=== PATIENT | female | born 1945 | race Caucasian/White ===

== ENCOUNTER 2019-10-11 11:48 | Day surgery (SDC) | payer MEDICARE, OTHER ==
--- NOTE | 2019-10-05 10:50 | HP ---
AMENDED REPORT NOW INCLUDES DESIGNATED COSIGNER PREOPERATIVE HISTORY AND PHYSICAL: DATE OF SURGERY/ADMISSION: 10/11/19 DATE OF OFFICE VISIT/ENCOUNTER: 09/28/19 ATTENDING SURGEON: Noy Guajardo MD * (DICTATED BY SEAMUS TERESA) PROCEDURE: Right thumb incision and drainage, removal of foreign body. HISTORY OF PRESENT ILLNESS: This is a 74-year-old female who cut her right thumb about 6 weeks ago when she was reaching to flower buncher or picker a piece of glass. She thought she got the glass out of her thumb, but she has had a persistent nonhealing wound there that has been bleeding at times. It is very sore and bothersome. She would like to have the presumed piece of glass removed. She denies any other injuries. She denies any associated numbness or tingling. PAST MEDICAL HISTORY: 1. Raynaud's disease. 2. Arthritis. 3. History of vertigo. 4. Anxiety/depression. PAST SURGICAL HISTORY: 1. Left dermoid cyst oophorectomy/salpingectomy. 2. Lysis of adhesions. 3. Appendectomy. 4. Cholecystectomy. 5. Right ear surgery. CURRENT MEDICATIONS: 1. Alendronate sodium 70 mg weekly. 2. Centrum daily. 3. Escitalopram oxalate 10 mg daily. 4. Meclizine HCl 25 mg 1 t.i.d. p.r.n. 5. Metrogel 0.75 p.r.n. 6. Vagifem 10 mcg biweekly. ALLERGIES: NSAIDs cause gastric upset. FAMILY MEDICAL HISTORY: Heart disease, hypertension, cancer. SOCIAL HISTORY: The patient is a nurse. She denies tobacco use and recreational drug use. She drinks alcohol on regular occasion, usually a glass of wine daily. REVIEW OF SYSTEMS: Negative for general, cephalic, cardiovascular, respiratory , GI, , other musculoskeletal, integumentary, endocrine, neurologic and hematologic symptoms. Infectious Disease: Negative for MRSA, hepatitis C, HIV. PHYSICAL EXAMINATION GENERAL: Well-developed, well-nourished 74-year-old female in no acute distress. VITAL SIGNS: Height 5 feet 4 inches, weight 122 pounds, pulse rate 87, blood pressure 142/82. HEENT: Normocephalic, atraumatic. Pupils are equal, round, and reactive to light and accommodation. Extraocular movements are intact. NECK: Supple. No palpable lymph nodes. Throat is clear. PULMONARY: Lungs are clear to auscultation bilaterally. No wheezes, rales, or rhonchi. CARDIOVASCULAR: Regular rate and rhythm. S1 and S2. No murmurs, rubs, or gallops. No edema. ABDOMEN: Positive bowel sounds, soft, nontender. NEUROLOGICAL: Alert and oriented x3. Cranial nerves II through XII are intact. Sensation is intact to light touch. MUSCULOSKELETAL: On exam of her right hand, on the thumb there is a nonhealing wound on the radial aspect. It is tender to palpation. She has normal motion of her thumb IP joint. Neurovascular function is intact. IMPRESSION: Likely foreign body, right thumb. PLAN: The patient is scheduled to undergo right thumb incision and drainage and removal of foreign body with Dr. Guajardo on 10/11/19. She will return to the office 10 days postop for followup and suture removal. A prescription for Tylenol III was e-scribed to the patient's pharmacy for postoperative pain management. SEAMUS TERESA [id number]/[facility] #: [id number] [place]
[2019-10-11] MEDS ORDERED: Lidocaine 1% INJ* 10 MG/ML 30 ML SDV ONE ×2 (11:51→12:45)
[2019-10-11 14:06] VITALS: BP 141/78
--- NOTE | 2019-10-12 01:18 | OP ---
DATE OF OPERATION: 10/11/19 [facility] DATE OF : [birth year] SURGEON: Noy Guajardo MD PRUNE WASHER: SEAMUS Bell ANESTHESIA: Local. ESTIMATED BLOOD LOSS: Zero. PRE-OP DIAGNOSIS: Foreign body in the right thumb. POST-OP DIAGNOSIS: Foreign body in the right thumb. PROCEDURE: I and D right thumb with foreign body removal. TOURNIQUET TIME: About 15 minutes. INDICATIONS FOR PROCEDURE: Reina is a 74-year-old female who has a nonhealing wound on her right thumb that began after she had a small shard of glass in her thumb. She thinks there may be some remaining glass. She presents for I and D and foreign body removal from the right thumb. DESCRIPTION OF PROCEDURE: The patient was brought to the operating room and was given a digital block with 10 cc of 1% plain lidocaine. The skin of her right upper extremity was prepped and draped in the usual sterile fashion. The thumb was exsanguinated with a tourniquet, which was left in place during the procedure. An ellipse of skin was incised around the nonhealing wound and this was traced bluntly all the way down to the distal phalanx and removed en bloc and sent for pathology. The wound was copiously irrigated with saline. The wound was explored and no foreign body was found. The skin edges were reapproximated with a 4-0 nylon suture. The wound was dressed with Xeroform, 4x4, Francisco, and Coban. The patient tolerated the procedure well and was brought to the recovery room in good condition. Please note that tourniquet was released prior to placement of the bandage. [id number]/[facility] #: [id number] [facility]
== END 2019-10-11 14:23 | disposition home or self-care (01) ==
LOC: OREAST 11:48
PROVIDERS: ATTEND Orthopaedic Surgery
DX: S61.041A Puncture wound with foreign body of right thumb without damage to nail, initial encounter (principal); I73.00 Raynaud's syndrome without gangrene; M19.90 Unspecified osteoarthritis, unspecified site; F41.8 Other specified anxiety disorders; R42 Dizziness and giddiness; W25.XXXA Contact with sharp glass, initial encounter; Y92.9 Unspecified place or not applicable
CPT/HCPCS: 88302

== ENCOUNTER 2019-11-09 06:53 | Day surgery (SDC) | payer MEDICARE, OTHER ==
[~2019-11-09 06:53] MED LIST: Acetaminophen TAB* 325 MG PO PRN; Buffered Lidocaine 1% SYRIN* 1 ML/SYRINGE INTRADERM ONE
[2019-11-09] MEDS ORDERED: Midazolam* 1 MG/ML 5 ML VIAL (5 MG) ONE (08:05)
[2019-11-09] MEDS ORDERED: fentaNYL* 50 MCG/ML 2 ML VIAL (100 MCG VIAL) ONE (08:11)
[2019-11-09 09:15] VITALS: BP 120/61
[2019-11-09] MEDS ORDERED: Phenylephrine OPHTH SOL 2.5%* 2 ML ONE (10:00)
[2019-11-09] MEDS ORDERED: Lidocaine 2% w/ EPI 1:200,000* 20 ML SDV VIAL ONE (10:00)
[2019-11-09] MEDS ORDERED: Neomycin/Polymy/Dex OPTH.SUSP* MAXITROL 0.1% 5 ML ONE (10:00)
[2019-11-09] MEDS ORDERED: Ketorolac 0.5% OPHTH (NF) 0.5 % 5 ML BTL ONE (10:00)
[2019-11-09] MEDS ORDERED: acetaZOLAMIDE TAB* 250 MG ONE (10:00)
[2019-11-09] MEDS ORDERED: Proparacaine 0.5% OPHTH.SOL* 15 ML BTL ONE (10:00)
[2019-11-09] MEDS ORDERED: Cyclopentolate 1% OPTH.SOL* 2 ML BTL ONE (10:00)
[2019-11-09] MEDS ORDERED: Povidone Iodine 5% OPTH* 30 ML BTL ONE (10:00)
[2019-11-09] MEDS ORDERED: Lidocaine 1% MPF ** 5 ML VIAL ONE (10:00)
--- NOTE | 2019-11-09 16:33 | OP ---
DATE OF OPERATION: 11/09/2019 - [facility] DATE OF : 1945. SURGEON: Helio Knowles M.D. PREOPERATIVE DIAGNOSIS: Cataract right eye. POSTOPERATIVE DIAGNOSIS: Cataract right eye. OPERATIVE PROCEDURE: Extracapsular cataract extraction with intraocular lens implant right eye. DESCRIPTION OF PROCEDURE: The patient was brought to the operating room after being given 1/2% Alcaine with epinephrine drops in the preoperative area. The eye was prepped and draped in the usual sterile fashion. Sterile drape and eyelid speculum were placed. Again, topical 1/2% Alcaine with epinephrine was given. A paracentesis incision was made at the 9 o'clock position with the No.75 blade. Clear cornea incision 2.2 x 2.2-mm was created at the 12 o'clock position starting at the anterior limbus using the 2.2-mm keratome. The anterior chamber was irrigated with 0.4 mL of 1% non-preservative intracameral lidocaine and filled with DisCoVisc. A capsulorrhexis was completed using the cystotome and the Utrata forceps. Hydrodissection was performed with balanced salt solution. The lens nucleus was removed with the Phacoemulsification handpiece without incident. Cortex was removed with the irrigation-aspiration handpiece. The capsular bag was re-inflated using DisCoVisc and an [id number] implant was inserted with the shooter. The irrigation-aspiration handpiece was used to remove all residual DisCoVisc. The eye was refilled with balanced salt solution and the wound checked and found to be watertight. Topical Maxitrol drops were given. [id number]/[facility] #: [id number] [facility]
== END 2019-11-09 09:02 | disposition home or self-care (01) ==
LOC: OREAST 06:53
PROVIDERS: ATTEND Specialist
DX: H25.811 Combined forms of age-related cataract, right eye (principal); E78.00 Pure hypercholesterolemia, unspecified; H43.813 Vitreous degeneration, bilateral; H25.812 Combined forms of age-related cataract, left eye; Z87.891 Personal history of nicotine dependence
CPT/HCPCS: A9270-GY; J2250; J3010; V2632

== ENCOUNTER 2020-08-14 23:54 | Observation (INO) ==
[2020-08-15] MEDS ORDERED: NS 0.9% 1000 ml BAG 1,000 ML IV ONE (00:20)
[2020-08-15 00:46] LABS: ABS Basophils 0.1 10^3/ul (0-0.2); ABS Eosinophils 0.1 10^3/ul (0-0.6); ABS Monocytes 0.7 10^3/ul (0-0.8); ABS Neutrophils 4.8 10^3/ul (1.5-7.7); Eosinophil % 1.2 %; Hematocrit 40 % (35-47); Lymphocyte % 26.7 %; Mean Corpuscular HGB Conc 35 g/dL (31-36); Mean Corpuscular Hemoglobin 32 pg (27-31); Mean Corpuscular Volume 92 fL (80-97); Mean Platelet Volume 7.5 fL (7.4-10.4); Nucleated Red Blood Cells % 0.1; Platelet Count 364 10^3/uL (150-450); Red Blood Count 4.37 10^6 /uL (3.70-4.87); Red Cell Distribution Width 12 % (10-15); White Blood Count 7.7 10^3/uL (3.5-10.8)
[2020-08-15 01:11] LABS: Albumin 4.6 g/dL (3.2-5.2); Albumin/Globulin Ratio 1.5 (1-3); Calcium 9.7 mg/dL (8.6-10.3); EGFR African American 146.7 (>60); EGFR Non-African American 121.3 (>60); Potassium 4.1 mmol/L (3.5-5.0); Total Bilirubin 0.4 mg/dL (0.2-1.0); Total Protein 7.6 g/dL (6.4-8.9)
[2020-08-15 01:14] LABS: INR 1.05 (0.82-1.09)
[2020-08-15] MEDS ORDERED: Morphine 4 MG/ML VIAL (1 ml) IV ONE (01:25)
[2020-08-15] MEDS ORDERED: LORazepam 2 mg VIAL 1 ml IV PUSH ONE (01:49)
[2020-08-15] MEDS ORDERED: Lorazepam PYXIS KEY PRN (01:49)
[2020-08-15] MEDS ORDERED: Lorazepam PYXIS KEY ONE (01:57)
[2020-08-15] MEDS ORDERED: Lidocaine 1% VIAL 10 MG/ML VIAL ONE (02:02)
[2020-08-15] MEDS ORDERED: Morphine 2 MG/ML SYRINGE ONE (02:06)
[2020-08-15] MEDS ORDERED: Morphine 2 MG/ML SYRINGE IV ONE (02:08)
[2020-08-15 04:56] LABS: ABS Lymphocytes 1.2 10^3/ul (1.0-4.8); ABS Monocytes 0.6 10^3/ul (0-0.8); ABS Neutrophils 7.5 10^3/ul (1.5-7.7); Eosinophil % 0.1 %; Hematocrit 31 % (35-47); Hemoglobin 10.6 g/dL (12.0-16.0); Lymphocyte % 12.5 %; Mean Corpuscular HGB Conc 34 g/dL (31-36); Mean Corpuscular Hemoglobin 32 pg (27-31); Mean Corpuscular Volume 93 fL (80-97); Platelet Count 278 10^3/uL (150-450); Red Blood Count 3.31 10^6 /uL (3.70-4.87); Red Cell Distribution Width 13 % (10-15); White Blood Count 9.3 10^3/uL (3.5-10.8)
[2020-08-15 14:59] LABS: Hematocrit 37 % (35-47); Hemoglobin 12.6 g/dL (12.0-16.0)
[2020-08-16 06:35] LABS: ABS Eosinophils 0.1 10^3/ul (0-0.6); ABS Lymphocytes 1.5 10^3/ul (1.0-4.8); ABS Monocytes 0.6 10^3/ul (0-0.8); ABS Neutrophils 2.2 10^3/ul (1.5-7.7); Eosinophil % 1.3 %; Hematocrit 34 % (35-47); Hemoglobin 11.7 g/dL (12.0-16.0); Lymphocyte % 34.3 %; Mean Corpuscular HGB Conc 35 g/dL (31-36); Mean Corpuscular Hemoglobin 32 pg (27-31); Mean Corpuscular Volume 93 fL (80-97); Mean Platelet Volume 7.9 fL (7.4-10.4); Platelet Count 209 10^3/uL (150-450); Red Blood Count 3.63 10^6 /uL (3.70-4.87); Red Cell Distribution Width 13 % (10-15); White Blood Count 4.3 10^3/uL (3.5-10.8)
[2020-08-16 07:08] LABS: BUN/Creatinine Ratio 17.9 (8-20); Calcium 8.3 mg/dL (8.6-10.3); EGFR African American 195.5 (>60); EGFR Non-African American 161.6 (>60)
[2020-08-16 10:58] VITALS: BP 128/74
== END 2020-08-16 16:15 | disposition home or self-care (01) ==
LOC: MEDTELE 23:54 → ED 23:54 → MEDTELE 08-15 14:35
PROVIDERS: ADMIT Internal Medicine; ATTEND Internal Medicine